=== PATIENT | male | born 1985 | race African-American/Black ===

== ENCOUNTER 2020-09-16 15:43 | Inpatient (IN) | payer OTHER ==
[~2020-09-16] VITALS: Ht 180.3 cm; Wt 120.2 kg
--- NOTE | ~2020-09-16 | HC ---
[facility] [place] [address] CONSULTATION Name: CHERIE SCHULER Room #: 355-P ADM IN M.R.#: [id number] Admission: 09/17/20 Attend Phys: Ashley Bianchi Discharge: Date of : 85 Report #: [id number] THIS REPORT FOR: cc: Cyndi Hanson Beth RNP Al-Absi,Manas Magallanes MD ~ REASON FOR CONSULTATION: Elevated creatinine post-contrast exposure. REASON FOR PRESENTATION: Numerous complaints. Chest pain. Abdominal pain. Shortness of breath. HISTORY OF PRESENT ILLNESS: A 34-year-old who presented with numerous complaints as mentioned above. He had been having those issues for some time. He reported to his primary care physician, was prescribed some medications such as Mucinex. However, continued to have those above-mentioned issues and was told to come to the Emergency Room. He tested positive for COVID-19. He does not carry a diagnosis of hypertension or diabetes mellitus. He was found to have pericardial effusion, pleural effusion. He was admitted to further evaluate. I was consulted to manage his renal related issues as he was found to have a creatinine of 1.7 on arrival that has come down to 1.4. He does have significant +3 proteinuria. He is not aware of any previous renal issues. Cardiac echo showed severe diastolic dysfunction, severely reduced ejection fractions at 10%. There was no evidence of pericardial tamponade. OUTPATIENT MEDICATIONS: Remeron. PAST MEDICAL HISTORY: Denies hypertension or diabetes mellitus. FAMILY HISTORY: No known chronic kidney disease. ALLERGIES: TREE NUTS. REVIEW OF SYSTEMS: GENERAL: Significant for weakness. CARDIOVASCULAR: Significant for shortness of breath. PULMONARY: Significant for shortness of breath and dyspnea on exertion. GASTROINTESTINAL: Positive for nausea and vomiting. GENITOURINARY: No frequency, no urgency. MUSCULOSKELETAL: Occasional myalgias. PHYSICAL EXAMINATION: GENERAL: Alert, oriented, in no apparent distress. VITAL SIGNS: Blood pressure is 116/85; however, on arrival, his blood pressure was 180/116. HEAD AND NECK: No jugular venous distention, no bruit, no thyromegaly. [facility] [address] [place] [address] CONSULTATION Name: CHERIE SCHULER Room #: 355-P [facility] IN M.R.#: [id number] Admission: 09/17/20 Attend Phys: Ashley Bianchi Discharge: Date of : 85 Report #: [id number] CHEST: No crackles. Decreased air entry bilaterally. CARDIOVASCULAR: No rub. ABDOMEN: Soft, nontender. EXTREMITIES: Lower extremities, no edema. LABORATORY DATA: Revealed a potassium of 3.3, creatinine of 1.4. C-reactive protein was elevated at 20.3. COVID-19 is negative x 2. Urine is significant for +3 protein. IMPRESSION AND PLAN: 1. Acute kidney injury. 2. Chronic kidney disease. 3. Cardiomyopathy. 4. Untreated hypertension. 5. Proteinuria. 6. The patient's symptoms are all related to a cardiorenal syndrome. I will switch to an oral diuretic regimen. I will evaluate his urine protein to creatinine ratio. He has severe cardiomyopathy contributing to his renal dysfunction and he is exhibiting what seems to be cardiorenal syndrome. 6. Salt restriction. 7. Avoid nephrotoxic medications. 8. Discontinue IV fluid. 9. Blood pressure control. 10. We will continue to follow. By: [id number] Manas Andino MD /nt
[2020-09-16 16:51] VITALS: BP 180/116
[2020-09-16 17:30] LABS: URINE BLOOD NEGATIVE (Negative); URINE CLARITY CLEAR; URINE COLOR YELLOW; URINE GLUCOSE-RANDOM* NEGATIVE (Negative); URINE KETONES NEGATIVE (Negative); URINE LEUKOCYTES-REFLEX NEGATIVE (Negative); URINE NITRITE-REFLEX NEGATIVE (Negative); URINE PROTEIN (DIPSTICK) 3+ (Negative); URINE SPECIFIC GRAVITY >= 1.030 (1.005-1.035); URINE UROBILINOGEN 0.2 E.U./dl (0.2-1.0)
[2020-09-16 17:32] LABS: ICTOTEST (BILI CONFIRMATORY) Negative (Negative); URINE BILIRUBIN NEGATIVE (Negative)
[2020-09-16 17:37] LABS: BACTERIA-REFLEX 1-9 Few /HPF (None Seen); CRYSTALS None Seen /LPF (None Seen); HYALINE CASTS 0-3 Few /LPF (None Seen); SQUAMOUS None Seen /LPF (0-3); URINE RBC None Seen /HPF (0-2); URINE WBC-REFLEX None Seen /HPF (0-5)
[2020-09-16 17:39] LABS: ABSOLUTE NEUTROPHILS 8.1 thou/uL (1.4-8.2); BASOPHILS 0.9 % (0.0-2.0); EOSINOPHILS 0.4 % (0.0-3.0); HEMATOCRIT 49.3 % (42.0-52.0); HEMOGLOBIN 15.7 gm/dL (14.0-18.0); LYMPHOCYTES 12.6 % (24.0-44.0); MCH 28.4 pg (26.0-34.0); MCHC 31.8 g/dL (28.0-37.0); MCV 89.2 fL (80.0-100.0); MONOCYTES 7.8 % (1.0-8.0); POLYS 78.3 % (36.0-66.0); RBC 5.53 mil/uL (4.50-6.00); RDW 15.8 % (10.5-14.5); WBC 10.3 thou/uL (4.0-11.0)
[2020-09-16 17:44] LABS: CALCIUM 9.1 mg/dL (8.5-10.1); CREATININE 1.7 mg/dL (0.7-1.3); POTASSIUM 4.2 mmol/L (3.5-5.1)
[2020-09-16] MEDS ORDERED: ONDANSETRON HCL4 M2 PO (17:58)
[2020-09-16] MEDS ORDERED: REMERON45 M1 PO (17:58)
[2020-09-16 18:04] LABS: LARGE PLATELETS RARE
[2020-09-16 18:05] LABS: PLATELET COUNT 264 thou/uL (150-400)
[2020-09-16 18:43] LABS: MAGNESIUM 2.1 mg/dL (1.8-2.4); TROPONIN-I 0.1 ng/mL (<0.06)
[2020-09-16 18:45] LABS: APTT 27.5 Seconds (24.5-32.8); D-DIMER 1.47 ug/mLFEU (0.19-0.50); INR 1.3; PROTIME 13.6 Seconds (9.3-11.4)
[2020-09-16 18:56] LABS: AMP/METHAMP Negative (Negative); BARBITURATES Negative (Negative); BENZODIAZEPINES Negative (Negative); COCAINE Negative (Negative); METHADONE Negative (Negative); OPIATES Negative (Negative); PCP Negative (Negative)
[2020-09-17] VITALS (9 sets, daily range): BP systolic 109–148; BP diastolic 67–112
--- NOTE | 2020-09-17 01:28 | NUR ---
HANDOFF SENT TO 3W
--- NOTE | 2020-09-17 03:12 | NUR ---
Admission history and assessments completed. Creplan initiated. Patient up adlib. Gait steady, refused SCD's Orders received for Lovenox. Enhanced precaution pending COVID PCR results, Anitgen negative.
--- NOTE | 2020-09-17 06:04 | NUR ---
Patient COVID negative. Nursing supervisor home restoration service and Melinda Devries INFORMATICS DEVELOPER notified. Patient is CCtele status. No beds available in CCU.
[2020-09-17 06:06] LABS: CALCIUM 9.2 mg/dL (8.5-10.1); CREATININE 1.4 mg/dL (0.7-1.3)
[2020-09-17 06:15] LABS: CHOLESTEROL 143 mg/dL (<200); HDL CHOLESTEROL 29 mg/dL (>40); LDL CHOLESTEROL 101 mg/dL (<100); TC:HDL 4.9 Ratio (Not establshd); TRIGLYCERIDE 69 mg/dL (<150); VLDL 14 mg/dL (<40)
[2020-09-17 07:21] LABS: CALCIUM 9.1 mg/dL (8.5-10.1); CREATININE 1.6 mg/dL (0.7-1.3); POTASSIUM 4.7 mmol/L (3.5-5.1)
[2020-09-17 08:21] LABS: ALBUMIN 2.9 g/dL (3.4-5.0)
--- NOTE | 2020-09-17 09:38 | EKG ---
[facility] [place] [address] ELECTROCARDIOGRAM REPORT Name: CHERIE SCHULER Room #: 355- ADM IN M.R.#: [id number] Admission: 09/17/20 Attend Phys: Ashley Bianchi Discharge: Date of : 85 Report #: [id number] THIS REPORT FOR: cc: Cyndi Hanson Beth RNP Couchonnal, Luis F. MD ~ THIS REPORT FOR: //name// [facility] ED Test Date: 2020-09-16 Test Time: 18:38:34 Pat Name: CHERIE SCHULER Department: Room: [facility] Gender: M Facilities Coordinator: FABIOLA : 1985 Requested By: Larry Treadwell Order Number: [id number] MD: Onur Sánchez Measurements Intervals Enterprise Rate: 121 P: 31 IL: 138 QRS: 14 QRSD: 88 T: 171 QT: 315 QTc: 447 Interpretive Statements Sinus tachycardia Probable left atrial enlargement Anteroseptal infarct, old Nonspecific T abnormalities, lateral leads No previous ECG available for comparison Electronically Signed On 09-17-2020 9:38:01 CDT by Onur Sánchez [email or web address] <ELECTRONICALLY SIGNED> By: Onur Sánchez MD 09/17/20 0938 37 37 Onur Sánchez MD /EPI
--- NOTE | 2020-09-17 11:40 | 2DMMODE ---
[facility] [address] [place] [place] [address] 2 D/M-MODE ECHOCARDIOGRAM Name: CHERIE SCHULER Room #: 355-P ADM IN M.R.#: [id number] Admission: 09/17/20 Attend Phys: Ashley Bianchi Discharge: Date of : 85 Report #: [id number] THIS REPORT FOR: cc: Cyndi Hanson Beth RNP Couchonnal, Luis F. MD ~ APPROVED REPORT Study performed: 09/17/2020 09:58:27 EXAM: Comprehensive 2D, Doppler, and color-flow Echocardiogram Patient Location: Bedside Room #: [facility] Status: routine BSA: 2.39 HR: 105 bpm BP: 148/112 mmHg Rhythm: Tachycardia Other Information Study Quality: Good Indications Pericardial Effusion 2D Dimensions RVDd: 47.20 mm IVSd: 9.20 (7-11mm) LVOT Diam: 22.31 (18-24mm) LVDd: 65.22 mm PWd: 10.28 (7-11mm) Ascending Ao: 28.94 (22-36mm) LVDs: 59.89 (25-40mm) Aortic Root: 31.39 mm IVC: 25.00 mm Volumes Left Atrial Volume (Systole) Single Plane 4CH: 73.56 mL Single Plane 2CH: 83.40 mL LA ESV Index: 35.00 mL/m2 Aortic Valve AoV Peak Kermit.: 0.82 m/s AO Peak Gr.: 2.72 mmHg LVOT Max P.82 mmHg LVOT Max V: 0.67 m/s ZOILA Vmax: 3.19 cm2 [facility] [address] [place] [address] 2 D/M-MODE ECHOCARDIOGRAM Name: CHERIE SCHULER Room #: 355-P [facility] IN .R.#: [id number] Admission: 09/17/20 Attend Phys: Ashley Conway Discharge: Date of : 85 Report #: [id number] Mitral Valve E/A Ratio: 2.1 MV Decel. Time: 72.31 ms MV E Max Kermit.: 0.85 m/s MV A Kermit.: 0.40 m/s MV PHT: 20.97 ms IVRT: 77.85 ms Pulmonary Valve PV Peak Kermit.: 0.51 m/s PV Peak Gr.: 1.10 mmHg Pulmonary Vein P Vein S: 0.31 m/s P Vein D: 0.81 m/s P Vein S/D Ratio: 0.38 Tricuspid Valve TR Peak Kermit.: 2.87 m/s RAP Estimate: 15.00 mmHg TR Peak Gr.: 33.03 mmHg PA Pressure: 48.00 mmHg Left Ventricle Left ventricle is severely dilated. There is global hypokinesis of the left ventricle. There is normal left ventricular wall thickness. Left ventricular systolic function is severely decreased. LVEF is10%. Severe diastolic dysfunction is present (restrictive filling). Right Ventricle Right ventricle is severely dilated. Right ventricle is moderately hypokinetic. Atria Left atrium is mildly dilated. Right atrium is mildly dilated. Aortic Valve The aortic valve is normal in structure. Trace aortic regurgitation. There is no aortic valvular stenosis. Mitral Valve The mitral valve is normal in structure. Mild mitral regurgitation. No evidence of mitral valve stenosis. Tricuspid Valve The tricuspid valve is normal in structure. Mild to moderate tricuspid regurgitation. PAP is estimated at 48 mmHg. [facility] [place] [address] 2 D/M-MODE ECHOCARDIOGRAM Name: CHERIE SCHULER Room #: 355-P ADM IN M.R.#: [id number] Admission: 09/17/20 Attend Phys: Ashley Conway Discharge: Date of : 85 Report #: [id number] Pulmonic Valve The pulmonary valve is normal in structure. Mild pulmonic regurgitation. Great Vessels The aortic root is normal in size. IVC is dilated and collapses <50% with inspiration. Pericardium Trace pericardial effusion. No echo indications of pericardial tamponade. <Conclusion> There is global hypokinesis of the left ventricle. There is normal left ventricular wall thickness. Left ventricular systolic function is severely decreased. LVEF is10%. Severe diastolic dysfunction is present (restrictive filling). Right ventricle is severely dilated. Right ventricle is moderately hypokinetic. Left atrium is mildly dilated. Right atrium is mildly dilated. The aortic valve is normal in structure. Trace aortic regurgitation. The mitral valve is normal in structure. Mild mitral regurgitation. The tricuspid valve is normal in structure. Mild to moderate tricuspid regurgitation. PAP is estimated at 48 mmHg. Trace pericardial effusion. No echo indications of pericardial tamponade. <ELECTRONICALLY SIGNED> By: Onur Sánchez MD 09/17/20 1140 1140 114 Onur Sánchez MD /INF
--- NOTE | 2020-09-17 15:35 | NUR ---
Received awake on bed. Due medications given as prescribedm, able to swallow meds w/o difficulty. On room air. Vital signs stable. A+Ox4. On telemetry; no complains and signs of chest pain, crushing sensation and heaviness. On heart healthy diet- tolerating well; no nausea, no vomiting and no abdominal pain noted. Continent of bowel and bladder, able to use urinal and go to the toilet independently. With NS at 80cc/hr, infusing well at L AC. Consults for Cardio, Pulmo and Renal called in, a/w physician's rounds. Independent with ADLs. Echo done today- Dr Jaramillo saw results. Maintained on isolation, r/o covid; charge nurse called ID nurse Batsheva Connell re: negative result; may discontinue enhanced precautions- pt informed and aware. Updated given to patient's mother. Lab called this afternoon- gram positive cocci from blood culture- Dr Christine informed re: result, orders obtained. To continue monitoring patient.
[2020-09-18 01:14] LABS: MCH 28.2 pg (26.0-34.0); MCHC 31.9 g/dL (28.0-37.0); MCV 88.5 fL (80.0-100.0); RBC 4.87 mil/uL (4.50-6.00); RDW 15.6 % (10.5-14.5); WBC 8.4 thou/uL (4.0-11.0)
[2020-09-18 01:26] LABS: HEMOGLOBIN 13.7 gm/dL (14.0-18.0)
[2020-09-18 01:30] LABS: CALCIUM 8.6 mg/dL (8.5-10.1); CREATININE 1.4 mg/dL (0.7-1.3); TROPONIN-I 0.06 ng/mL (<0.06)
[2020-09-18 01:34] LABS: POTASSIUM 3.3 mmol/L (3.5-5.1)
[2020-09-18 04:02] VITALS: BP 116/85
--- NOTE | 2020-09-18 04:10 | NUR ---
Patient progressing slowly towards outcome goals. BP improving. Diuresing from Lasix. Heart rate less tachy rate now on 90's. Slept well. Per social science analyst [facility]. COVID and Flu negative. Swab for H1 N1 pending. Up adlib without difficulty.
[2020-09-18 08:07] VITALS: BP 153/103
[2020-09-18 11:13] VITALS: BP 128/80
--- NOTE | 2020-09-18 15:45 | NUR ---
RN ASSUMED PT'S CARE AT 0700AM,PT IS A&OX3, PT'S VS ARE STABLE, PT IS OFF ISOLATION DUE TO NEGATIVE COVID TEST, PT'S DOES NOT HAVE N/V , SOB AND FEVER , PT'S BLE EDEMA HAS IMPROVED, PT TRANSFERED TO CCU ROOM 219 AT 1430PM.
[2020-09-18 16:30] VITALS: BP 117/82
--- NOTE | 2020-09-18 18:12 | NUR ---
Patient transfered to [facility] from [facility]. Patient awake and alert, up to bathroom on own. Heart rate and rhythm stable. Will continue to monitor.
[2020-09-18 19:15] VITALS: BP 110/92
[2020-09-19] VITALS (12 sets, daily range): BP systolic 101–145; BP diastolic 43–104
--- NOTE | 2020-09-19 01:44 | NUR ---
A/O X 4.UP INDEPENDENTLY.DENIES PAIN AND SOB.NO CONCERNS TONIGHT.MONITOR SHOWS SINUS TACHY.POC CONTINUED.
[2020-09-19 04:32] LABS: ALBUMIN 2.8 g/dL (3.4-5.0); CALCIUM 8.9 mg/dL (8.5-10.1); CREATININE 1.4 mg/dL (0.7-1.3); PHOSPHORUS 4.4 mg/dL (2.5-4.9); POTASSIUM 4.1 mmol/L (3.5-5.1)
[2020-09-19 13:48] LABS: BE(vivo) 4.7 mmol/L (-2 to +3); HCO3 29.7 mmol/L (22.0-26.0); PCO2 45.1 mmHg (35.0-45.0); PO2 104.7 mmHg (80.0-100.0); pH 7.437 (7.360-7.450); sO2 97.9 % (92.0-98.0)
[2020-09-19 13:48] LABS: HCO3 31.9 mmol/L (22.0-26.0); PCO2 VENOUS 50.6 mmHg (41.0-51.0); PO2 VENOUS 33.9 mmHg (35.0-45.0)
--- NOTE | 2020-09-19 14:55 | CATHLAB ---
[facility] [place] [address] INVASIVE PROCEDURE REPORT Name: CHERIE SCHULER Room #: 219-P ADM IN M.R.#: [id number] Admission: 09/17/20 Attend Phys: Douglas Christine MD Discharge: Date of : 85 Report #: [id number] THIS REPORT FOR: cc: Cyndi Hanson Beth RNP Park, Jin S. MD ~ APPROVED REPORT Study performed: 09/19/2020 12:29:39 Patient Details Patient Status: In-Patient Room #: 219 The patient is a 34 year-old male Event Personnel Leroy Medina Spool Worker, Alysa Carrera RTR Monitor, Debi,Gibran Alison RT(R)() Juanjose Ramirez Tony RN cnc manager Performed Art Access - R femoral artery* Denis Access - R femoral vein Right and Left Heart Cath w/or w/o Coronarie [id number] [facility] Hemostasis with Manual pressure 13458 Initial Mod Sed Same Phys/QHP Gr5y 100212 40097 Mod Sed Same Phys/QHP Ea [id number] Indication CHF Current Status: , Dyspnea, Cardiomyopathy Risk Factors Hypercholesterolemia, Hypertension Procedure Narrative The Right Groin^ was infiltrated with 1% Lidocaine subcutaneous anesthesia. A Right Heart Catheterization was performed with a 7 Fr. Wapello-Mendel catheter and pressure were recorded. Cardiac outputs were obtained by the Cornel method. A PINNACLE 4FR Sheath #[id number] sheath was inserted into the RFA. Coronary angiography was performed using coronary diagnostic catheters. The right coronary system was accessed and visualized with a JR4 catheter. The left coronary system was accessed and visualized with a JL4 catheter. The left ventricle was accessed and visualized with a JR4 catheter. Hemostasis was obtained with manual pressure following sheath removal without any complications. The patient tolerated the procedure well and there were no complications associated with the procedure. There was no [facility] [address] [place] [address] INVASIVE PROCEDURE REPORT Name: CHERIE SCHULER Room #: 219-P [facility] IN ..#: [id number] Admission: 09/17/20 Attend Phys: Douglas Christine MD Discharge: Date of : 85 Report #: [id number]. Intraoperative Conscious Sedation Sedation start time: 13:16 Case end Time: 13:53 Fentanyl 50 mcg Versed 2 mg Fluoro Time: 573.00 minutes Dose: DAP 5088.20 cGycm2 573 mGy Contrast Type and Amount: Visipaque 45 ml Coronary Angiography The patient's coronary anatomy is right dominant. Diagnostic Cath Left Main Left main artery is a large-caliber vessel, appears patent with no flow-limiting lesions.. LAD This is a moderate-sized caliber vessel, traverses the anterior wall and wraps around the apex. This vessel is patent with no flow-limiting lesions. Diagonal 1 This is a patent vessel, with no flow-limiting lesions. Circumflex Supplies 1 moderate-sized OM vessel. OM1 This is a patent vessel, with no flow-limiting lesions. Right Coronary The RCA is a dominant vessel, patent with no flow-limiting lesions. R PDA This is a patent vessel, with no flow-limiting lesions. RPLV This is a patent vessel, with no flow-limiting lesions. Ramus This is a moderate-sized caliber vessel, patent with no flow-limiting lesions. Left Ventriculography Left Ventriculography was not performed. Ejection Fraction was 15% based off patient's Echocardiogram. An LVEDP was measured and there is no gradient across the outflow tract. Hemodynamics The right atrial mean pressure is 18 mmHg. The right ventricular pressure is 42/21 mmHg. The pulmonary artery pressure is 47/29 mmHg with a mean of 35 mmHg. The mean pulmonary capillary wedge pressure is 29 mmHg. The aortic pressure is 130/87 mmHg with a mean of 102 mmHg. The left ventricular pressure is 118/26 mmHg with a mean of mmHg. The left ventricular end diastolic pressure is 38 mmHg. PaO2 saturation is 65.30 %. Arterial saturation is 97.20 %. The cardiac [facility] [address] [place] [address] INVASIVE PROCEDURE REPORT Name: CHERIE SCHULER Room #: 219-P ADM IN M.R.#: [id number] Admission: 09/17/20 Attend Phys: Douglas Christine MD Discharge: Date of : 85 Report #: [id number] output using the Cornel method is 5.42 L/min. The cardiac index using the Cornel method is 2.29 L/min/m2. Conclusion 1. Severe, nonischemic cardiomyopathy. 2. The coronary arteries appeared to be angiographically normal. 3. Right-sided intracardiac pressures as recorded. 4. Recommend guideline directed medical therapy. <ELECTRONICALLY SIGNED> By: Leroy Medina MD 09/19/205 54 54 Leroy Medina MD /INF
[2020-09-19 18:01] LABS: CALCIUM 9.4 mg/dL (8.5-10.1); CREATININE 1.6 mg/dL (0.7-1.3); MAGNESIUM 2.1 mg/dL (1.8-2.4); POTASSIUM 4.5 mmol/L (3.5-5.1)
--- NOTE | 2020-09-19 18:38 | NUR ---
ASSUMED CARE OF PT AT SHIFT CHANGE. ASSESSMENTS CHARTED. MEDS GIVEN PER JAN. PT A&OX4. CATH PROCEDURE TODAY WITH NO INTERVENTIONS. PLAN TO DC TOMORROW. IN AFTERNOON PT COMPLAINED OF SEVERE LEG CRAMPS. PEDAL PULSES PALPATED. GROIN SITE CDI WITH NO HEMATOMA OR BRUISING. NOTIFIED, ORDERED BPM, POTASSIUM, MAG. WILL CONTINUE TO MONITOR AND FOLLOW POC.
[2020-09-20 00:06] LABS: GLYCOHEMOGLOBIN (HGB A1C) 6.2 % (4.8-5.6)
[2020-09-20 04:37] LABS: CREATININE 1.2 mg/dL (0.7-1.3); POTASSIUM 3.6 mmol/L (3.5-5.1)
[2020-09-20 04:41] LABS: HEMATOCRIT 44.6 % (42.0-52.0); HEMOGLOBIN 14.4 gm/dL (14.0-18.0); MCH 28.6 pg (26.0-34.0); MCHC 32.3 g/dL (28.0-37.0); MCV 88.6 fL (80.0-100.0); RBC 5.04 mil/uL (4.50-6.00); RDW 15.3 % (10.5-14.5); WBC 6.7 thou/uL (4.0-11.0)
[2020-09-20 05:00] VITALS: BP 124/65
[2020-09-20 07:45] VITALS: BP 119/76
--- NOTE | 2020-09-20 08:43 | NUR ---
A/O X 4.UP INDEPENDENTLY.COMPLAIN OF LEG CRAMPS.TYLENOL GIVEN.VERBALIZED RELIEF.MONITOR SHOWS SR.POC CONTINUED.
[2020-09-20 17:00] VITALS: BP 122/90
--- NOTE | 2020-09-20 17:18 | NUR ---
[facility] PT UP AD MIKEY IN ROOM - ALFREDA DIET AND FLUIDS. MEDS PER JAN - NO CO'S OF PAIN OR NAUSEA. PT TO BE FITTED FOR LIFE VEST LINDA - REP CALLED AND STATED HE WOULD BE HERE A APPROX NOON TO FIT PATIENT. PT WITH NO CO'S AT THE PRESENT TIME.
[2020-09-20 18:06] LABS: ANA INTERPRETATION Negative (())
[2020-09-20 20:45] VITALS: BP 110/75
--- NOTE | 2020-09-21 03:30 | NUR ---
PT ALERT AND ORIENTED. VITALS STABLE. DENIES CHEST PAIN, NAUSEA OR VOMITING. NO CONCERNS OVERNIGHT. PT WOULD LIKE TO DC HOME. TO BE FITTED WITH A LIFE VEST THIS AM. WILL CONTINUE TO MONITOR AND FOLLOW POC.
[2020-09-21 04:45] VITALS: BP 135/90
[2020-09-21 06:00] LABS: HEMATOCRIT 47.7 % (42.0-52.0); HEMOGLOBIN 15.5 gm/dL (14.0-18.0); MCH 28.3 pg (26.0-34.0); MCHC 32.4 g/dL (28.0-37.0); MCV 87.3 fL (80.0-100.0); RBC 5.47 mil/uL (4.50-6.00); RDW 15.3 % (10.5-14.5); WBC 5.9 thou/uL (4.0-11.0)
[2020-09-21 06:19] LABS: CALCIUM 9.2 mg/dL (8.5-10.1); CREATININE 1.4 mg/dL (0.7-1.3); POTASSIUM 4.1 mmol/L (3.5-5.1)
[2020-09-21 08:14] VITALS: BP 124/97
[2020-09-21] MEDS ORDERED: CARVEDILOL12.5 MG PO (08:56)
[2020-09-21] MEDS ORDERED: TORSEMIDE20 MG PO (08:56)
[2020-09-21] MEDS ORDERED: K-DUR 20 MEQ T20 MEQ PO (08:56)
[2020-09-21] MEDS ORDERED: ASPIR 8181 MG PO (08:56)
[2020-09-21] MEDS ORDERED: COZAAR 50 MG TA50 MG PO (08:56)
[2020-09-21 11:29] VITALS: BP 109/74
[2020-09-21 12:52] VITALS: BP 109/74
--- NOTE | 2020-09-21 13:07 | NUR ---
ASSESSMENT CHARTED. PT ALERT AND ORIENTED. VSS. ST ON TELE. DENIED HAVING PAIN OR DISCOMFORT. RECEIVED THE VEST. DISCHARGE INSTRUCTIONS GIVEN TO PT. PT VERBERLISED UNDERSTANDING.
[2020-09-22 22:06] LABS: ADENOVIRUS Negative (Negative); INFLUENZA A Negative (Negative); INFLUENZA B Negative (Negative); METAPNEUMOVIRUS Negative (Negative); PARAINFLUENZA 1 Negative (Negative); PARAINFLUENZA 2 Negative (Negative); PARAINFLUENZA 3 Negative (Negative); RHINOVIRUS Negative (Negative); RSV A Negative (Negative); RSV B Negative (Negative)
== END 2020-09-21 13:09 | disposition home or self-care (01) | DRG 286 ==
LOC: EDSEX 15:43 → ER 15:43 → 3W 09-17 01:12 → EROBS 09-17 01:12 → 2N 09-17 01:12 → 3W 09-17 02:00 → 2N 09-18 14:42
PROVIDERS: Emergency Medicine; Hospitalist; Internal Medicine Cardiovascular Disease; Nurse Practitioner Family; Pediatrics; ADMIT Hospitalist; ATTEND Hospitalist
DX: I13.0 Hypertensive heart and chronic kidney disease with heart failure and stage 1 through stage 4 chronic kidney disease, or unspecified chronic kidney disease (principal); I50.21 Acute systolic (congestive) heart failure; N17.9 Acute kidney failure, unspecified; I31.3 Pericardial effusion (noninflammatory); K29.70 Gastritis, unspecified, without bleeding; G47.00 Insomnia, unspecified; N18.9 Chronic kidney disease, unspecified; R80.9 Proteinuria, unspecified; I42.9 Cardiomyopathy, unspecified; E66.01 Morbid (severe) obesity due to excess calories; Z20.828 Contact with and (suspected) exposure to other viral communicable diseases; Z91.018 Allergy to other foods; Z79.899 Other long term (current) drug therapy; Z68.37 Body mass index [BMI] 37.0-37.9, adult; Z23 Encounter for immunization
CPT/HCPCS: 10081; 10879

== ENCOUNTER → 2021-01-19 | Outpatient (CLI) | payer OTHER ==
[~2021-01-19] MED LIST: ASPIR 8181 MG PO; CARVEDILOL12.5 MG PO; COZAAR 50 MG TA50 MG PO; K-DUR 20 MEQ T20 MEQ PO; ONDANSETRON HCL4 M2 PO; REMERON45 M1 PO; TORSEMIDE20 MG PO
== END ==
LOC: SJCVCIMAG 07:39
PROVIDERS: ATTEND Internal Medicine Cardiovascular Disease
DX: I51.7 Cardiomegaly (principal); R06.00 Dyspnea, unspecified; I42.9 Cardiomyopathy, unspecified